=== PATIENT | male | born 1940 | race Caucasian/White ===

== ENCOUNTER 2017-12-20 16:04 | Emergency (ER) | payer MEDICARE, BC ==
[2017-12-20 16:54] LABS: #Basophils 0.1 thou/uL (0.0-0.2); #Eosinphils 0.1 thou/uL (0.0-0.7); #Lymphocytes 1.5 thou/uL (1.20-3.40); #Monocytes 1.2 thou/uL (0.11-0.59); #Neutrophils 6.7 thou/uL (1.40-6.50); %Basophils 0.5 % (0.0-1.0); %Eosinophils 0.9 % (0.0-10.0); %Lymphocytes 15.8 % (21.0-51.0); %Monocytes 12.8 % (0.0-10.0); %Neutrophils 69.9 % (42.0-75.0); Hemoglobin 15.7 g/dL (14.0-18.0); Mean Corpuscular HGB CONC 35.6 g/dL (32.0-36.0); Mean Corpuscular Hemoglobin 32.2 pg (27.0-31.0); Mean Corpuscular Volume 90.4 fl (80.0-94.0); Mean Platelet Volume 7.5 fL (7.4-10.4); Platelet Count 274 thou/uL (130-400); RBC Distribution Width 10.7 % (11.5-14.5); Red Blood Cell (RBC) Count 4.89 mill/uL (4.70-6.10); White Blood Cell (WBC) Count 9.5 thou/uL (4.8-10.8)
[2017-12-20 17:10] LABS: ALT (SGPT) 12 U/L (8-55); AST (SGOT) 16 U/L (5-34); Albumin 4.2 g/dL (3.4-4.8); Alkaline Phosphatase 60 U/L (40-150); Anion Gap 14 mmol/L (10-20); BUN (Urea Nitrogen) 23 mg/dL (8.4-25.7); Bilirubin, Total 0.8 mg/dL (0.2-1.2); CK (CPK) 95 U/L (30-200); Calc. Creatinine Clearance 0 mL/min (70-130); Calcium 9.3 mg/dL (7.8-10.44); Carbon Dioxide 24 mmol/L (23-31); Chloride 102 mmol/L (98-107); Estimated GFR-MDRD 65; Globulin 2.7 g/dL (2.4-3.5); Glucose 120 mg/dL (83-110); Lipase 15 U/L (8-78); Potassium 3.8 mmol/L (3.5-5.1); Protein, Total 6.9 g/dL (5.8-8.1); Sodium 136 mmol/L (136-145)
[2017-12-20 17:14] LABS: CKMB 1.5 ng/mL (0-6.6); Troponin I Less than 0.010 ng/mL (< 0.028)
== END 2017-12-20 17:42 | disposition home or self-care (01) ==
LOC: SCSER 16:04
DX: E86.0 Dehydration (principal); R10.9 Unspecified abdominal pain; H26.9 Unspecified cataract; G20 Parkinson's disease; I25.10 Atherosclerotic heart disease of native coronary artery without angina pectoris; E78.5 Hyperlipidemia, unspecified; I10 Essential (primary) hypertension; F41.9 Anxiety disorder, unspecified; Z79.82 Long term (current) use of aspirin; Z79.899 Other long term (current) drug therapy
CPT/HCPCS: 80053; 82550; 82553; 83690; 84484; 85025; 93005

== ENCOUNTER 2018-03-25 15:42 | Inpatient (IN) | payer MEDICARE, BC ==
[2018-03-25 17:46] LABS: Anion Gap 13 mmol/L (10-20); BUN (Urea Nitrogen) 18 mg/dL (8.4-25.7); Calc. Creatinine Clearance 0 mL/min (70-130); Calcium 8.6 mg/dL (7.8-10.44); Carbon Dioxide 23 mmol/L (23-31); Chloride 92 mmol/L (98-107); Estimated GFR-MDRD Greater than 90; Glucose 103 mg/dL (83-110); Potassium 3.8 mmol/L (3.5-5.1); Sodium 124 mmol/L (136-145)
[2018-03-25 17:49] LABS: Bilirubin Negative (Negative); Blood, Urine Negative (Negative); Clarity Clear (Clear); Glucose, Urine (Dipstick) Negative (Negative); Leukocyte Negative (Negative); Nitrite Negative (Negative); Protein, Urine (Dipstick) Negative (Neg-Trace); Specific Gravity, Urine 1.015 (1.005-1.030); pH, Urine 6.5 (5.0-9.0)
[2018-03-25 18:06] LABS: #Eosinphils 0.1 thou/uL (0.0-0.7); #Lymphocytes 1.8 thou/uL (1.20-3.40); #Monocytes 1.4 thou/uL (0.11-0.59); #Neutrophils 9.9 thou/uL (1.40-6.50); %Basophils 0.4 % (0.0-1.0); %Eosinophils 0.6 % (0.0-10.0); %Lymphocytes 13.5 % (21.0-51.0); %Monocytes 10.5 % (0.0-10.0); %Neutrophils 75.1 % (42.0-75.0); Hemoglobin 13.9 g/dL (14.0-18.0); Mean Corpuscular HGB CONC 35.5 g/dL (32.0-36.0); Mean Corpuscular Hemoglobin 30.2 pg (27.0-31.0); Mean Corpuscular Volume 85.1 fL (78.0-98.0); Mean Platelet Volume 7.6 fL (7.4-10.4); Platelet Count 278 thou/uL (130-400); RBC Distribution Width 10.3 % (11.5-14.5); Red Blood Cell (RBC) Count 4.62 mill/uL (4.70-6.10); White Blood Cell (WBC) Count 13.1 thou/uL (4.8-10.8)
[2018-03-25 20:42] VITALS: BMI 28.7
[2018-03-25] MEDS ORDERED: Acetaminophen 325 MG TAB PO PRN (20:48)
[2018-03-25] MEDS ORDERED: Ondansetron HCl/PF 4 MG/2 ML Vial IVP PRN (20:48)
[2018-03-25] MEDS: Sodium Chloride 0.9% 1,000 ML IV SCH (21:20)
--- NOTE | 2018-03-26 00:33 | HP ---
PRIMARY CARE PHYSICIAN: Dr. Joe Harris. CODE STATUS: FULL CODE. TIME OF EVALUATION: 8:30 p.m. CHIEF COMPLAINT: Urinary retention. HISTORY OF PRESENT ILLNESS: A 78-year-old male patient with a past medical history of Parkinson dise ase; coronary artery disease, status post stent placement; hyperlipidemia; hypertension; came to the hospital after having urinary retention. The patient reported being unable to urinate, no clear trig gers, no alleviating factors. As note, he was seen in [facility] on Friday and was prescribed so me Flomax, but the patient has had no improvement. The patient denies any fever, chills. Symptoms a re reported as moderate. REVIEW OF SYSTEMS: Constitutional: No fever, chills, or generalized weakness. Respiratory: No cou gh, sputum production, or shortness of breath. Cardiovascular: No palpitations or shortness of nolberto th. Gastrointestinal: No nausea, no vomiting, diarrhea or abdominal pain. 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 Genitourinary: The patient reported urinary retention. Extremities: No leg swelling. All other systems were reviewed and negative except for the findings mentioned abov e. PAST MEDICAL HISTORY: Positive for findings mentioned in the HPI. PAST SURGICAL HISTORY: TURP, back surgery, heart stent, appendectomy, hernia repair. PSYCHIATRIC HISTORY: Anxiety. SOCIAL HISTORY: The patient drinks socially every week. No drug use. No smoking history. Lives at home with family. ALLERGIES: CIPRO and SULFA. FAMILY HISTORY: Mother and father of congestive heart failure. REPORTED MEDICATIONS: Atorvastatin, , carbidopa, aspirin, Toprol, Ranexa, . PHYSICAL EXAMINATION: VITAL SIGNS: Blood pressure 148/85 with heart rate 73, respiratory rate was 19, temperature 97.6, ox ygen saturation was 94% on room air. GENERAL APPEARANCE: The patient is alert, oriented, not in any acute distress. HEENT: Eyes: Normal conjunctivae. Moist oral mucosa. Anicteric. NECK: No JVD. RESPIRATORY: Bilateral air entry. No rales, no wheezing. Symmetric expansion. CARDIOVASCULAR: Normal rate. Regular rhythm. No murmurs, no gallop. No edema. ABDOMEN: Soft, normal bowel sounds. MUSCULOSKELETAL: Baseline range of motion and strength. No tenderness. SKIN: Warm and intact. No pallor, no rash, no redness. Peripheral pulses are present. Capillary r efill seems to be intact. NEUROLOGIC: Baseline sensory. No evidence of any new focal weakness. The patient has underlying Pa rkinson disease. PSYCHIATRIC: The patient is in good mood. No anxiety, oriented, optimal judgment. LABORATORY DATA: Labs were reviewed. White count 13.1, hemoglobin 13.9, MCV 85, platelet count 278. Chemistry: Sodium 124, potassium 3.8, chloride 92, carbon dioxide 23, anion gap 13, BUN 18, creati nine 0.8, GFR greater than 90, glucose 103. UA was negative. ASSESSMENT AND PLAN: The patient will be placed in the hospital with the following medical problems. 1. Hyponatremia. Sodium 124, unclear etiology. We will send electrolytes, we will follow results, we will adjust treatment depending on workup results. 2. Urinary retention, unclear etiology, could be related to side effects of anticholinergic, may nee d adjustments and medication treatment. 3. Hyperlipidemia. Reconcile home medications, low cholesterol diet is advised. 4. History of coronary artery disease, status post stent, reconcile home medications. Adjust treatm ent as needed. 5. Uncontrolled hypertension, systolic blood pressure 150s, reconcile home medications, adjust treat ment as needed. 6. Deep venous thrombosis prophylaxis.
[2018-03-26 05:11] LABS: Anion Gap 14 mmol/L (10-20); BUN (Urea Nitrogen) 13 mg/dL (8.4-25.7); Calc. Creatinine Clearance 90 mL/min (70-130); Calcium 8.6 mg/dL (7.8-10.44); Carbon Dioxide 25 mmol/L (23-31); Chloride 97 mmol/L (98-107); Estimated GFR-MDRD 85; Glucose 100 mg/dL (83-110); Potassium 3.5 mmol/L (3.5-5.1); Sodium 132 mmol/L (136-145)
[2018-03-26] MEDS: Sodium Chloride 0.9% 1,000 ML IV SCH (05:59)
[2018-03-26 06:09] LABS: #Eosinphils 0.1 thou/uL (0.0-0.7); #Lymphocytes 1.2 thou/uL (1.20-3.40); #Monocytes 1.3 thou/uL (0.11-0.59); #Neutrophils 7.2 thou/uL (1.40-6.50); %Basophils 0.4 % (0.0-1.0); %Eosinophils 0.6 % (0.0-10.0); %Monocytes 13.6 % (0.0-10.0); %Neutrophils 73.4 % (42.0-75.0); Hemoglobin 13.6 g/dL (14.0-18.0); Mean Corpuscular Hemoglobin 33.1 pg (27.0-31.0); Mean Corpuscular Volume 91.9 fL (78.0-98.0); Mean Platelet Volume 7.8 fL (7.4-10.4); Platelet Count 265 thou/uL (130-400); RBC Distribution Width 11.6 % (11.5-14.5); White Blood Cell (WBC) Count 9.8 thou/uL (4.8-10.8)
[2018-03-26] MEDS ORDERED: Polyethylene Glycol 3350 17 GM Packet PO PRN (07:10)
[2018-03-26] MEDS: Ubidecarenone 50 MG CAP PO SCH (08:17)
[2018-03-26] MEDS: Metoprolol Tartrate 25 MG TAB PO SCH (08:18)
[2018-03-26] MEDS: Tamsulosin HCl 0.4 MG CAP PO SCH ×2 (08:18→20:36)
[2018-03-26] MEDS: Finasteride 5 MG TAB PO SCH (08:18)
[2018-03-26] MEDS: Enoxaparin Sodium 40 MG/0.4 ML SYRINGE SC SCH (08:18)
[2018-03-26] MEDS ORDERED: Non-Formulary Item 1 EACH (Ubidecarenone [Coq-10] 100 MG) PO SCH (09:00)
[2018-03-26] MEDS ORDERED: CARBIDOPA PO SCH ×2 (09:00)
[2018-03-26] MEDS ORDERED: LEVODOPA PO SCH ×2 (09:00)
[2018-03-26] MEDS ORDERED: RASAGILINE MESYLATE 1 MG PO SCH (09:00)
[2018-03-26] MEDS: Carbidopa/Levodopa 25-100 mg Tablet PO SCH ×4 (09:06→20:36)
--- NOTE | 2018-03-26 11:01 | PDOC.PN ---
- Subjective Encounter Start Date: 03/26/18 Encounter Start Time: 09:00 Subjective: no abd pain or nausea -: wants to go home - Objective Resuscitation Status: Resuscitation Status FULL:Full Resuscitation MAR Reviewed: Yes Vital Signs & Weight: Vital Signs (12 hours) Temp Pulse Resp BP Pulse Ox 03/26/18 08:05 98.2 F 71 16 174/86 H 92 L 03/26/18 08:00 98.2 F 71 16 03/26/18 04:00 98.6 F 67 16 149/80 H 92 L 03/25/18 23:43 98.7 F 72 12 138/80 92 L Weight Weight 200 lb I&O: 03/25/18 03/26/18 03/27/18 06:59 06:59 06:59 Intake Total 240 Output Total 3050 Balance -3050 240 Result Diagrams: 03/26/18 03:48 03/26/18 03:48 Phys Exam - Physical Examination HEENT: PERRLA, moist MMs Neck: no JVD, supple Respiratory: no wheezing, no rales Cardiovascular: RRR, no significant murmur Gastrointestinal: soft, non-tender, positive bowel sounds dominguez+ Musculoskeletal: no edema, pulses present Neurological: non-focal, moves all 4 limbs Psychiatric: normal affect, A&O x 3 Dx/Plan (1) Urinary retention due to benign prostatic hyperplasia Code(s): N40.1 - BENIGN PROSTATIC HYPERPLASIA WITH LOWER URINARY TRACT SYMP; R33.8 - OTHER RETENTION OF URINE Status: Acute Comment: prior h/o turp in 1995 with (2) Parkinson disease Code(s): G20 - PARKINSON'S DISEASE Status: Chronic (3) CAD (coronary artery disease) Code(s): I25.10 - ATHSCL HEART DISEASE OF [place] CORONARY ARTERY W/O ANG PCTRS Status: Chronic Qualifiers: Coronary Disease-Associated Artery/Lesion type: [place] artery [place] vs. transplanted heart: [place] heart Associated angina: without angina Qualified Code(s): I25.10 - Atherosclerotic heart disease of [place] coronary artery without angina pectoris (4) Dyslipidemia Code(s): E78.5 - HYPERLIPIDEMIA, UNSPECIFIED Status: Chronic (5) Hyponatremia Code(s): E87.1 - HYPO-OSMOLALITY AND HYPONATREMIA Status: Resolved (6) HTN (hypertension) Code(s): I10 - ESSENTIAL (PRIMARY) HYPERTENSION Status: Chronic Qualifiers: Hypertension type: essential hypertension Qualified Code(s): I10 - Essential (primary) hypertension - Plan add flomax bid, proscar -: has indwelling dominguez now -: may need to prepone his apr 27 appt to of march if he goes home -: -with dominguez catheter. May dc home if above is set up, no sign of uti -: continue home meds including parkinson's meds * . Review of Systems - Medications/Allergies Allergies/Adverse Reactions: Allergies Allergy/AdvReac Type Severity Reaction Status Date / Time No Known Allergies Allergy Unverified 03/25/18 20:52 Medications: Current Medications Acetaminophen (Tylenol) 650 mg PO Q4H PRN PRN Reason: Headache/Fever or Pain Atorvastatin Calcium (Lipitor) 20 mg PO HS [facility] Carbidopa/Levodopa (Sinemet 25-100) 1 tab PO QID [facility] Last Admin: 03/26/18 09:06 Dose: 1 tab Coenzyme Q10 (Coenzyme Q10) 100 mg PO DAILY [facility] Last Admin: 03/26/18 08:17 Dose: 100 mg Enoxaparin Sodium (Lovenox) 40 mg SC 0900 [facility] Last Admin: 03/26/18 08:18 Dose: 40 mg Finasteride (Proscar) 5 mg PO DAILY [facility] Last Admin: 03/26/18 08:18 Dose: 5 mg Metoprolol Tartrate (Lopressor) 25 mg PO DAILY [facility] Last Admin: 03/26/18 08:18 Dose: 25 mg Ondansetron HCl (Zofran) 4 mg IVP Q6H PRN PRN Reason: Nausea/Vomiting Polyethylene Glycol (Miralax) 17 gm PO PRN PRN PRN Reason: Constipation Ranolazine (Ranexa) 500 mg PO BID [facility] Last Admin: 03/26/18 08:18 Dose: 500 mg Rasagiline (Azilect) 1 mg PO DAILY [facility] Last Admin: 03/26/18 08:18 Dose: 1 mg Sodium Chloride (Flush - Normal Saline) 10 ml IVF Q12HR [facility] Last Admin: 03/26/18 08:18 Dose: 10 ml Sodium Chloride (Flush - Normal Saline) 10 ml IVF PRN PRN PRN Reason: Saline Flush Tamsulosin HCl (Flomax) 0.4 mg PO BID [facility] Last Admin: 03/26/18 08:18 Dose: 0.4 mg Venlafaxine HCl (Effexor Xr) 75 mg PO HS [facility]
[2018-03-26] MEDS ORDERED: Venlafaxine HCl XR 75 MG CAP PO SCH (21:00)
[2018-03-26] MEDS ORDERED: Atorvastatin Calcium 20 MG TAB PO SCH (21:00)
[2018-03-26] MEDS ORDERED: Non-Formulary Item 1 EACH (Desvenlafaxine Succinate [Pristiq] 50 MG) PO SCH (21:00)
[2018-03-27] MEDS: Tamsulosin HCl 0.4 MG CAP PO SCH (08:19)
[2018-03-27] MEDS: Metoprolol Tartrate 25 MG TAB PO SCH (08:19)
[2018-03-27] MEDS: Ubidecarenone 50 MG CAP PO SCH (08:19)
[2018-03-27] MEDS: Finasteride 5 MG TAB PO SCH (08:19)
[2018-03-27] MEDS: Carbidopa/Levodopa 25-100 mg Tablet PO SCH (08:20)
[2018-03-27] MEDS: Enoxaparin Sodium 40 MG/0.4 ML SYRINGE SC SCH (08:20)
--- NOTE | 2018-03-27 10:50 | PDOC.PN ---
- Subjective Encounter Start Date: 03/27/18 Encounter Start Time: 08:00 Subjective: no abd pain or nausea or fever - Objective Resuscitation Status: Resuscitation Status FULL:Full Resuscitation MAR Reviewed: Yes Vital Signs & Weight: Vital Signs (12 hours) Temp Pulse Resp BP Pulse Ox 03/27/18 08:25 98.2 F 88 18 94 L 03/27/18 07:39 98.2 F 88 18 155/76 H 94 L Weight Weight 200 lb I&O: 03/26/18 03/27/18 03/28/18 06:59 06:59 06:59 Intake Total 2450 Output Total 3050 4300 Balance -3050 -1850 Result Diagrams: 03/26/18 03:48 03/26/18 03:48 Phys Exam - Physical Examination HEENT: PERRLA, moist MMs Neck: no JVD, supple Respiratory: no wheezing, no rales Cardiovascular: RRR, no significant murmur Gastrointestinal: soft, non-tender, positive bowel sounds dominguez+ Musculoskeletal: no edema, pulses present Neurological: non-focal, moves all 4 limbs Psychiatric: normal affect, A&O x 3 Dx/Plan (1) Urinary retention due to benign prostatic hyperplasia Code(s): N40.1 - BENIGN PROSTATIC HYPERPLASIA WITH LOWER URINARY TRACT SYMP; R33.8 - OTHER RETENTION OF URINE Status: Acute Comment: prior h/o turp in 1995 with (2) Parkinson disease Code(s): G20 - PARKINSON'S DISEASE Status: Chronic (3) CAD (coronary artery disease) Code(s): I25.10 - ATHSCL HEART DISEASE OF [place] CORONARY ARTERY W/O ANG PCTRS Status: Chronic Qualifiers: Coronary Disease-Associated Artery/Lesion type: [place] artery [place] vs. transplanted heart: [place] heart Associated angina: without angina Qualified Code(s): I25.10 - Atherosclerotic heart disease of [place] coronary artery without angina pectoris (4) Dyslipidemia Code(s): E78.5 - HYPERLIPIDEMIA, UNSPECIFIED Status: Chronic (5) Hyponatremia Code(s): E87.1 - HYPO-OSMOLALITY AND HYPONATREMIA Status: Resolved (6) HTN (hypertension) Code(s): I10 - ESSENTIAL (PRIMARY) HYPERTENSION Status: Chronic Qualifiers: Hypertension type: essential hypertension Qualified Code(s): I10 - Essential (primary) hypertension - Plan hemostable -: dc pt home -: d/w , to see him on 04/01/2018 at 1 pm -: to provide rolling walker and thigh bag for dominguez -: dominguez care education per staff * .
[2018-03-27 11:13] VITALS: BP 135/79; TEMP 97.6
--- NOTE | 2018-03-27 20:15 | DIS ---
DATE OF ADMISSION: 03/25/2018 DATE OF DISCHARGE: 03/27/2018 DISCHARGE DISPOSITION: To home. PRIMARY DISCHARGE DIAGNOSIS: Urinary retention, likely due to underlying benign prostatic hypertroph y. SECONDARY DISCHARGE DIAGNOSES: Parkinson disease, coronary artery disease, dyslipidemia, hyponatremi a which got resolved, hypertension. PROCEDURES DONE DURING HOSPITALIZATION: H and H 13 and 37, platelet count 265. White count of 9.8. Initial sodium 124, discharge number of 132. BUN 13, creatinine 0.8. DISCHARGE MEDICATIONS: Aspirin 325 mg p.o. daily, Lipitor 20 mg p.o. at bedtime, carbidopa/levodopa 25/100 mg 4 times daily, Pristiq 50 mg p.o. at bedtime, Lopressor 25 mg daily, MiraLax 17 grams daily , rasagiline 1 mg p.o. daily, CoQ10 at 100 mg p.o. daily, Proscar 5 mg p.o. daily, Flomax 0.4 mg twic e daily, Ranexa 500 mg p.o. twice daily. ALLERGIES: No known drug allergies. DISCHARGE PLAN: The patient to follow up with Dr. Jaquelin Olivo on 04/01/2018 at 1:00 p.m. He also needs follow up with primary care physician in 1 week. BRIEF COURSE DURING HOSPITALIZATION: Patient initially came to ER with complaints of unable to pass urine. He was essentially admitted for urinary retention. He has had this issue from Friday when [facility] had [facility] and was given Flomax once daily. This did not seem to improve his re tention. He has had a Locke catheter placed and was placed on Flomax twice daily along with Proscar. The patient has had prior history of TURP done in 1995 for benign prostatic hypertrophy. He is cur rently stable with his Locke catheter. He had an mild hyponatremia which got resolved with fluid res uscitation. I have discussed his findings with Dr. Hammer and he will be shortly seeing him in a we ek. He was scheduled to see Dr. Hammer on 04/27/2018. In view of his Locke catheter and current re tention, he will be seen earlier on 04/01/2018. Hopefully, by then the Proscar and Flomax will take full effect and patient likely will have bladder training with removal of his catheter. He is on mul tiple medications which could potentially cause this in addition to benign prostatic hypertrophy. Edmund jayy is a bit unsteady with his Parkinson disease and a rolling walker has been prescribed prior to discharge. Please see a [id number] documentation on [facility] for the day of discharge.
== END 2018-03-27 12:42 | disposition home or self-care (01) | DRG 726 ==
LOC: SCSER 15:42 → T4-A 19:35
PROVIDERS: ADMIT Internal Medicine; ATTEND Internal Medicine
DX: N40.0 Benign prostatic hyperplasia without lower urinary tract symptoms (principal); E87.1 Hypo-osmolality and hyponatremia; G20 Parkinson's disease; I25.10 Atherosclerotic heart disease of native coronary artery without angina pectoris; Z95.5 Presence of coronary angioplasty implant and graft; E78.5 Hyperlipidemia, unspecified; I10 Essential (primary) hypertension; F41.9 Anxiety disorder, unspecified; Z88.1 Allergy status to other antibiotic agents; Z88.2 Allergy status to sulfonamides; Z79.82 Long term (current) use of aspirin
CPT/HCPCS: 36415; 51702; 80048; 81003; 85025; 99214; A4216; G0463; J1650

== ENCOUNTER 2018-04-05 16:18 | Inpatient (IN) | payer MEDICARE, BC ==
[2018-04-05 17:05] LABS: #Basophils 0.1 thou/uL (0.0-0.2); #Lymphocytes 0.3 thou/uL (1.20-3.40); #Monocytes 0.9 thou/uL (0.11-0.59); #Neutrophils 17.3 thou/uL (1.40-6.50); %Basophils 0.7 % (0.0-1.0); %Eosinophils 0.1 % (0.0-10.0); %Lymphocytes 1.5 % (21.0-51.0); %Monocytes 4.7 % (0.0-10.0); Hemoglobin 13.5 g/dL (14.0-18.0); Mean Corpuscular HGB CONC 35.6 g/dL (32.0-36.0); Mean Corpuscular Hemoglobin 31.9 pg (27.0-31.0); Mean Corpuscular Volume 89.7 fL (78.0-98.0); Mean Platelet Volume 7.1 fL (7.4-10.4); Platelet Count 259 thou/uL (130-400); RBC Distribution Width 10.4 % (11.5-14.5); Red Blood Cell (RBC) Count 4.24 mill/uL (4.70-6.10); White Blood Cell (WBC) Count 18.6 thou/uL (4.8-10.8)
[2018-04-05] MEDS ORDERED: Piperacillin/Tazobactam 3.375 GM VIAL ONE (17:05)
[2018-04-05] MEDS ORDERED: Sodium Chloride 0.9% 100 ML ONE (17:05)
[2018-04-05] MEDS ORDERED: Aspirin 325 MG TAB ONE (17:05)
--- NOTE | 2018-04-05 17:08 | RAD ---
PORTABLE SEMIUPRIGHT CHEST ONE VIEW: History: 78-year-old male with history of fever, dizziness, diaphoresis. Comparison: 08-30-15 FINDINGS: Heart size is normal. Atherosclerosis of the aorta. No confluent pneumonia, overt edema, or pleural e ffusion. IMPRESSION: No acute intrathoracic disease. No evidence for pneumonia. Atherosclerosis of the aorta. POS: [facility]
[2018-04-05 17:22] LABS: CKMB 2.1 ng/mL (0-6.6); Troponin I 0.056 ng/mL (< 0.028)
[2018-04-05 17:23] LABS: ALT (SGPT) 36 U/L (8-55); AST (SGOT) 33 U/L (5-34); Albumin 3.6 g/dL (3.4-4.8); Alkaline Phosphatase 87 U/L (40-150); Anion Gap 14 mmol/L (10-20); BUN (Urea Nitrogen) 24 mg/dL (8.4-25.7); Bilirubin, Total 0.6 mg/dL (0.2-1.2); Calc. Creatinine Clearance 0 mL/min (70-130); Calcium 8.8 mg/dL (7.8-10.44); Carbon Dioxide 23 mmol/L (23-31); Chloride 98 mmol/L (98-107); Estimated GFR-MDRD 45; Globulin 2.6 g/dL (2.4-3.5); Glucose 110 mg/dL (83-110); Lipase 17 U/L (8-78); Potassium 3.3 mmol/L (3.5-5.1); Protein, Total 6.2 g/dL (5.8-8.1); Sodium 132 mmol/L (136-145)
[2018-04-05 17:34] LABS: CK (CPK) 256 U/L (30-200)
[2018-04-05 18:08] LABS: Bilirubin Small (Negative); Blood, Urine Large (Negative); Glucose, Urine (Dipstick) Negative (Negative); Leukocyte Moderate (Negative); Nitrite Positive (Negative); Protein, Urine (Dipstick) 100 mg/dL (Neg-Trace); Specific Gravity, Urine 1.025 (1.005-1.030); pH, Urine 5.5 (5.0-9.0)
[2018-04-05 18:15] LABS: Clarity Cloudy (Clear)
[2018-04-05 18:16] LABS: Bacteria/HPF 4+ HPF (None Seen); Squamous Epithelial 0-3 HPF (0-3); WBC/HPF 21-50 HPF (0-3)
[2018-04-05] MEDS ORDERED: Ondansetron ODT 4 MG TAB PO PRN (20:27)
[2018-04-05] MEDS ORDERED: Acetaminophen 325 MG TAB PO PRN (20:27)
[2018-04-05] MEDS ORDERED: Bisacodyl 5 MG TAB PO PRN (20:27)
[2018-04-05] MEDS ORDERED: Guaifenesin DM 100-10/5 ML UDCUP PO PRN (20:27)
[2018-04-05] MEDS ORDERED: Fleet Enema 133 ML BOT PR PRN (20:27)
[2018-04-05] MEDS ORDERED: Ondansetron HCl/PF 4 MG/2 ML Vial IVP PRN (20:27)
[2018-04-05] MEDS ORDERED: cefTRIAXone\\ROCEPHIN 1 GM in Sodium Chloride 0.9% 100 ML IVPB SCH (21:00)
[2018-04-05 22:29] VITALS: BMI 25.4
[2018-04-05] MEDS: Famotidine/PF 20 mg/2ml Vial SLOW IVP SCH (22:51)
[2018-04-05] MEDS: Sodium Chloride 0.9% 1,000 ML IV SCH (22:53)
[2018-04-06 05:30] LABS: Albumin 3.3 g/dL (3.4-4.8); Anion Gap 14 mmol/L (10-20); BUN (Urea Nitrogen) 19 mg/dL (8.4-25.7); Calc. Creatinine Clearance 73 mL/min (70-130); Calcium 8.3 mg/dL (7.8-10.44); Carbon Dioxide 22 mmol/L (23-31); Chloride 99 mmol/L (98-107); Estimated GFR-MDRD 72; Glucose 104 mg/dL (83-110); Potassium 3.5 mmol/L (3.5-5.1); Sodium 131 mmol/L (136-145)
[2018-04-06 05:35] LABS: Band 22 % (5-11); Hemoglobin 12.1 g/dL (14.0-18.0); Lymphocytes 6 % (21-51); MDiff Complete? YES; Mean Corpuscular HGB CONC 34.2 g/dL (32.0-36.0); Mean Corpuscular Hemoglobin 32.2 pg (27.0-31.0); Mean Corpuscular Volume 94.3 fL (78.0-98.0); Mean Platelet Volume 7.4 fL (7.4-10.4); Monocytes 8 % (0-10); Neutrophil 64 % (42-75); PLT Morphology Comment Appears Adequate; Platelet Count 235 thou/uL (130-400); RBC Distribution Width 11.7 % (11.5-14.5); Red Blood Cell (RBC) Count 3.75 mill/uL (4.70-6.10); White Blood Cell (WBC) Count 27.3 thou/uL (4.8-10.8)
[2018-04-06] MEDS: Enoxaparin Sodium 30 MG/0.3 ML SYRINGE SC SCH (09:05)
[2018-04-06] MEDS ORDERED: cefTRIAXone Sodium 2 MG in Syringe 0 ML IVPB SCH (10:30)
--- NOTE | 2018-04-06 11:29 | HP ---
CHIEF COMPLAINT: Weak and dizzy. HISTORY OF PRESENT ILLNESS: This is a 78-year-old male with past medical history of Parkinson's, cor onary artery disease status post stent placement, hyperlipidemia, hypertension who presented with chi ef complaint of weakness and dizziness. The patient described dizziness and diaphoresis started arou nd 1400 on the day of admission. The patient was at his son's home when this started. The patient s tated that he felt "sick". The patient has associated symptoms of nausea and dizziness with some mal aise. The patient denies chest pain, shortness of breath, cough, vomiting, syncope, recent travel. Of note, the patient was recently seen in the ED for a urinary tract infection and was being treated. REVIEW OF SYSTEMS: Positive for weakness, dizziness. Otherwise, documented in the [facility] All other sys tems reviewed and are negative. FAMILY HISTORY: Reviewed and noncontributory to this visit. PAST SURGICAL HISTORY: The patient has TURP in the past, back surgery, CAD status post stents, appen dectomy, hernia repair. PSYCHIATRIC HISTORY: Includes anxiety. SOCIAL HISTORY: Patient drinks occasionally. Denies any illicits drugs or smoking history. PAST MEDICAL HISTORY: Refer to [facility]. ALLERGIES: Patient is allergic to CIPRO and SULFA. CURRENT MEDICATIONS: He takes atorvastatin, Azilect, carbidopa/levodopa, aspirin, Toprol, Ranexa, Pr istiq. PHYSICAL EXAMINATION: VITAL SIGNS: Blood pressure is 134/77, pulse is 110, respiratory rate of 17, temperature of 99.8, O2 sat on room air is 92. GENERAL APPEARANCE: The patient is lying in bed. The patient is trembling, but able to speak in ful l sentences, does not appear to be in any acute distress. HEENT: Head normal. ENT: Mucous membranes normal. Pupils are equally round and reactive to light. Extraocular muscles are intact. NECK: Supple, no JVD. Trachea is midline. LUNGS: Clear to auscultation bilateral. No wheeze, no rales, no rhonchi. HEART: Regular S1, S2. Regular rate and rhythm. ABDOMEN: Soft, nontender, nondistended, positive bowel sounds. No ecchymosis noted. EXTREMITIES: Upper extremities; the patient did have tremors of the upper extremities as noted. The patient is able to move all extremities and has good pulses. NEUROLOGIC: Cranial nerves II-XII are grossly intact. SKIN: Warm, dry and intact. PSYCHIATRIC: Normal. Alert and oriented x3. Chest x-ray showed no acute intrathoracic disease. No evidence of pneumonia, atherosclerosis of the aorta. ED COURSE: The patient received some Zosyn one time in the ED. LABORATORY DATA: Admission WBC is 18.6, hemoglobin 13.5, hematocrit 38.1, platelets 259, lymphocyte percent is 1.5, monocytes is 4.7. Electrolytes; sodium is 132, potassium is 3.3, chloride is 98, car bon dioxide 23, BUN is 24, creatinine is 1.5, creatine kinase 256. Troponins was 0.056. Urinalysis; large leukoesterase and positive for nitrites. ASSESSMENT AND PLAN: 1. This is a 78-year-old male with multiple comorbidities being admitted for urinary tract infection . We started the patient on Rocephin and will continue the patient on Rocephin. We will continue padilla pportive care. 2. History of Parkinson's, at this time stable. We will continue the patient on home medications. 3. Electrolyte abnormalities. We will monitor the patient's electrolytes and we will continue to re plete them. 4. Acute on chronic kidney disease stage 3. We restarted gentle hydration. We will follow up on e patient's creatinine in the morning. 5. Deep venous thrombosis and gastrointestinal prophylaxis.
[2018-04-06] MEDS: cefTRIAXone\\ROCEPHIN 2 GM in Sodium Chloride 0.9% 100 ML IVPB SCH (12:01)
[2018-04-06] MEDS: Sodium Chloride 0.9% 1,000 ML IV SCH (12:02)
[2018-04-06] MEDS ORDERED: Polyethylene Glycol 3350 17 GM Packet PO PRN (13:44)
[2018-04-06] MEDS ORDERED: Ubidecarenone 50 MG CAP PO SCH (15:00)
--- NOTE | 2018-04-06 16:17 | PDOC.PN ---
- Subjective Encounter Start Date: 04/06/18 Encounter Start Time: 11:30 Subjective: pt up in bed no complains - Objective Resuscitation Status: Resuscitation Status FULL:Full Resuscitation Vital Signs & Weight: Vital Signs (12 hours) Temp Pulse Resp BP Pulse Ox 04/06/18 11:38 98.2 F 81 16 150/75 H 91 L 04/06/18 08:00 97.9 F 75 18 92 L 04/06/18 07:25 97.9 F 75 18 134/72 92 L 04/06/18 04:19 98.0 F 68 18 118/67 92 L Weight Weight 187 lb 6.287 oz I&O: 04/05/18 04/06/18 04/07/18 06:59 06:59 06:59 Intake Total 758 480 Output Total 1200 Balance -442 480 Result Diagrams: 04/06/18 04:34 04/06/18 04:34 Phys Exam - Physical Examination Neck: no nodes, no JVD, supple, full ROM Respiratory: no wheezing, no rales, no rhonchi, wheezing present, clear to auscultation bilateral Cardiovascular: RRR, no significant murmur, no rub, gallop, irregular Dx/Plan (1) UTI (urinary tract infection) Status: Acute (2) Urinary retention due to benign prostatic hyperplasia Code(s): N40.1 - [place]EN[place] PROSTATIC HYPERPLASIA WITH LOWER URINARY TRACT SYMP; R33.8 - OTHER RETENTION OF URINE Status: Acute Comment: prior h/o turp in 1995 with (3) HTN (hypertension) Code(s): I10 - ESSENTIAL (PRIMARY) HYPERTENSION Status: Chronic Qualifiers: (4) Parkinson disease Code(s): G20 - PARKINSON'S DISEASE Status: Chronic - Plan will continue abx for now -: post void is 100ml -: pt is having blood tinged urine, if continue will get urology -: significant leukocytosis will recheck in am * . Review of Systems - Review of Systems Respiratory: negative: Cough, Dry, Shortness of Breath, Hemoptysis, SOB with Excertion, Pleuritic Pain, Sputum, Wheezing Cardiovascular: negative: chest pain, palpitations, orthopnea, paroxysmal nocturnal dyspnea, edema, light headedness, other Gastrointestinal: negative: Nausea, Vomiting, Abdominal Pain, Diarrhea, Constipation, Melena, Hematochezia, Other Genitourinary: negative: Dysuria, Frequency, Incontinence, Hematuria, Retention , Other - Medications/Allergies Allergies/Adverse Reactions: Allergies Allergy/AdvReac Type Severity Reaction Status Date / Time No Known Allergies Allergy Unverified 03/25/18 20:52 Medications: Current Medications Acetaminophen (Tylenol) 650 mg PO Q4H PRN PRN Reason: Headache/Fever or Pain Atorvastatin Calcium (Lipitor) 20 mg PO HS [facility] Bisacodyl (Dulcolax) 10 mg PO DAILYPRN PRN PRN Reason: Constipation Coenzyme Q10 (Coenzyme Q10) 100 mg PO DAILY [facility] Enoxaparin Sodium (Lovenox) 30 mg SC 0900 [facility] Last Admin: 04/06/18 09:05 Dose: 30 mg Famotidine (Pepcid) 20 mg SLOW IVP QPM [facility] Last Admin: 04/05/18 22:51 Dose: 20 mg Finasteride (Proscar) 5 mg PO HS [facility] Guaifenesin/Dextromethorphan (Robitussin Dm) 15 ml PO Q4H PRN PRN Reason: Cough Sodium Chloride (Normal Saline 0.9%) 1,000 mls @ 70 mls/hr IV .[id number] [facility] Last Admin: 04/06/18 12:02 Dose: 1,000 mls Ceftriaxone Sodium 2 gm/ (Sodium Chloride) 100 mls @ 200 mls/hr IVPB Q24HR [facility] Last Admin: 04/06/18 12:01 Dose: 100 mls Lactulose (Lactulose) 20 gm PO DAILYPRN PRN PRN Reason: Constipation Metoprolol Tartrate (Lopressor) 25 mg PO DAILY [facility] Ondansetron HCl (Zofran Odt) 4 mg PO Q6H PRN PRN Reason: Nausea/Vomiting Ondansetron HCl (Zofran) 4 mg IVP Q6H PRN PRN Reason: Nausea/Vomiting Carbidopa/Levodopa [ Carbidopa/Levodopa Odt] 1 Tablet 1 each PO QID [facility] Desvenlafaxine Succinate [Pristiq] 50 Mg 1 each PO DAILY [facility] Rasagiline Mesylate (1 Mg) 1 each PO DAILY [facility] Polyethylene Glycol (Miralax) 17 gm PO PRN PRN PRN Reason: Constipation Ranolazine (Ranexa) 500 mg PO BID [facility] Sodium Biphosphate/Sodium Phosphate (Fleet Enema) 133 ml ME ONE PRN PRN Reason: Constipation Stop: 05/05/18 20:28 Sodium Chloride (Flush - Normal Saline) 10 ml IVF Q12HR [facility] Last Admin: 04/06/18 09:05 Dose: Not Given Sodium Chloride (Flush - Normal Saline) 10 ml IVF PRN PRN PRN Reason: Saline Flush
[2018-04-06] MEDS ORDERED: Vancomycin HCl 1 GM in Premix Bag 1 BAG IVPB SCH (20:30)
[2018-04-06] MEDS: Famotidine/PF 20 mg/2ml Vial SLOW IVP SCH (21:36)
[2018-04-06] MEDS: Atorvastatin Calcium 20 MG TAB PO SCH (21:36)
[2018-04-06] MEDS: Finasteride 5 MG TAB PO SCH (22:05)
[2018-04-07 04:30] LABS: #Eosinphils 0.1 thou/uL (0.0-0.7); #Lymphocytes 1.3 thou/uL (1.20-3.40); #Neutrophils 14.6 thou/uL (1.40-6.50); %Basophils 0.3 % (0.0-1.0); %Eosinophils 0.3 % (0.0-10.0); %Lymphocytes 7.4 % (21.0-51.0); %Monocytes 11.1 % (0.0-10.0); Mean Corpuscular HGB CONC 34.5 g/dL (32.0-36.0); Mean Corpuscular Hemoglobin 32.8 pg (27.0-31.0); Mean Platelet Volume 8.1 fL (7.4-10.4); Platelet Count 272 thou/uL (130-400); RBC Distribution Width 11.8 % (11.5-14.5); Red Blood Cell (RBC) Count 3.96 mill/uL (4.70-6.10)
[2018-04-07 04:57] LABS: Anion Gap 13 mmol/L (10-20); BUN (Urea Nitrogen) 14 mg/dL (8.4-25.7); Calc. Creatinine Clearance 86 mL/min (70-130); Calcium 8.4 mg/dL (7.8-10.44); Carbon Dioxide 20 mmol/L (23-31); Chloride 101 mmol/L (98-107); Estimated GFR-MDRD 87; Glucose 105 mg/dL (83-110); Potassium 4.3 mmol/L (3.5-5.1); Sodium 130 mmol/L (136-145)
[2018-04-07] MEDS: Ubidecarenone 50 MG CAP PO SCH (08:56)
[2018-04-07] MEDS: Enoxaparin Sodium 30 MG/0.3 ML SYRINGE SC SCH (08:56)
[2018-04-07] MEDS: Metoprolol Tartrate 25 MG TAB PO SCH (08:56)
[2018-04-07] MEDS: Venlafaxine HCl XR 75 MG CAP PO SCH (08:56)
[2018-04-07] MEDS: Carbidopa/Levodopa 25-100 mg Tablet PO SCH ×4 (08:56→21:19)
[2018-04-07] MEDS ORDERED: Desvenlafaxine Succinate [Pristiq] 50 MG PO SCH (09:00)
[2018-04-07] MEDS: cefTRIAXone\\ROCEPHIN 2 GM in Sodium Chloride 0.9% 100 ML IVPB SCH (10:59)
--- NOTE | 2018-04-07 13:39 | PDOC.PN ---
- Subjective Encounter Start Date: 04/07/18 Encounter Start Time: 11:30 Subjective: pt up in bed has some hematuria - Objective Resuscitation Status: Resuscitation Status FULL:Full Resuscitation Vital Signs & Weight: Vital Signs (12 hours) Temp Pulse Resp BP Pulse Ox 04/07/18 08:00 98.2 F 94 18 138/77 95 04/07/18 05:03 98.0 F 83 20 141/82 H 92 L Weight Weight 187 lb 6.287 oz I&O: 04/06/18 04/07/18 04/08/18 06:59 06:59 06:59 Intake Total 758 2620 240 Output Total 1200 1475 Balance -442 1145 240 Result Diagrams: 04/07/18 04:15 04/07/18 04:15 Phys Exam - Physical Examination HEENT: PERRLA, moist MMs, sclera anicteric, TM's clear, oral pharynx no lesions , 2+ tonsils Neck: no nodes, no JVD, supple, full ROM Respiratory: no wheezing, no rales, no rhonchi, wheezing present, clear to auscultation bilateral Cardiovascular: RRR, no significant murmur, no rub, gallop, irregular Dx/Plan (1) UTI (urinary tract infection) Status: Acute (2) Urinary retention due to benign prostatic hyperplasia Code(s): N40.1 - BENIGN PROSTATIC HYPERPLASIA WITH LOWER URINARY TRACT SYMP; R33.8 - OTHER RETENTION OF URINE Status: Acute Comment: prior h/o turp in 1995 with (3) HTN (hypertension) Code(s): I10 - ESSENTIAL (PRIMARY) HYPERTENSION Status: Chronic Qualifiers: (4) Parkinson disease Code(s): G20 - PARKINSON'S DISEASE Status: Chronic - Plan will switch to po abx -: blood cx indicates gram neg staph -: hematuria mild, pt has no large clots if he continues to have -: hematuria will consult urology. hh is stable * . Review of Systems - Review of Systems Cardiovascular: negative: chest pain, palpitations, orthopnea, paroxysmal nocturnal dyspnea, edema, light headedness, other Gastrointestinal: negative: Nausea, Vomiting, Abdominal Pain, Diarrhea, Constipation, Melena, Hematochezia, Other Genitourinary: negative: Dysuria, Frequency, Incontinence, Hematuria, Retention , Other - Medications/Allergies Allergies/Adverse Reactions: Allergies Allergy/AdvReac Type Severity Reaction Status Date / Time No Known Allergies Allergy Unverified 03/25/18 20:52 Medications: Current Medications Acetaminophen (Tylenol) 650 mg PO Q4H PRN PRN Reason: Headache/Fever or Pain Atorvastatin Calcium (Lipitor) 20 mg PO HS [facility] Last Admin: 04/06/18 21:36 Dose: 20 mg Bisacodyl (Dulcolax) 10 mg PO DAILYPRN PRN PRN Reason: Constipation Carbidopa/Levodopa (Sinemet 25-100) 1 tab PO QID [facility] Last Admin: 04/07/18 13:17 Dose: 1 tab Coenzyme Q10 (Coenzyme Q10) 100 mg PO DAILY [facility] Last Admin: 04/07/18 08:56 Dose: 100 mg Enoxaparin Sodium (Lovenox) 30 mg SC 09 [facility] Last Admin: 04/07/18 08:56 Dose: 30 mg Famotidine (Pepcid) 20 mg SLOW IVP QPM [facility] Last Admin: 04/06/18 21:36 Dose: 20 mg Finasteride (Proscar) 5 mg PO [facility] Last Admin: 04/06/18 22:05 Dose: 5 mg Guaifenesin/Dextromethorphan (Robitussin Dm) 15 ml PO Q4H PRN PRN Reason: Cough Ceftriaxone Sodium 2 gm/ (Sodium Chloride) 100 mls @ 200 mls/hr IVPB Q24HR [facility] Last Admin: 04/07/18 10:59 Dose: 100 mls Lactulose (Lactulose) 20 gm PO DAILYPRN PRN PRN Reason: Constipation Metoprolol Tartrate (Lopressor) 25 mg PO DAILY [facility] Last Admin: 04/07/18 08:56 Dose: 25 mg Ondansetron HCl (Zofran Odt) 4 mg PO Q6H PRN PRN Reason: Nausea/Vomiting Ondansetron HCl (Zofran) 4 mg IVP Q6H PRN PRN Reason: Nausea/Vomiting Polyethylene Glycol (Miralax) 17 gm PO PRN PRN PRN Reason: Constipation Ranolazine (Ranexa) 500 mg PO BID [facility] Last Admin: 04/07/18 08:56 Dose: 500 mg Rasagiline (Azilect) 1 mg PO DAILY [facility] Last Admin: 04/07/18 08:56 Dose: 1 mg Sodium Biphosphate/Sodium Phosphate (Fleet Enema) 133 ml [place] ONE PRN PRN Reason: Constipation Stop: 05/05/18 20:28 Sodium Chloride (Flush - Normal Saline) 10 ml IVF Q12HR [facility] Last Admin: 04/07/18 08:56 Dose: 10 ml Sodium Chloride (Flush - Normal Saline) 10 ml IVF PRN PRN PRN Reason: Saline Flush Venlafaxine HCl (Effexor Xr) 75 mg PO DAILY [facility] Last Admin: 04/07/18 08:56 Dose: 75 mg
--- NOTE | 2018-04-07 14:08 | PQF ---
DATE: 04-07-18 ATTN: DR. ANAIS BENOIT Please exercise your independent, professional judgment in responding to the clarification form. Clinical indicators are provided on the bottom of this form for your review Please check appropriate box(es): [ x] Sepsis due to: (UTI, etc.) [ ] Localized infection without sepsis [ ] Other diagnosis [ ] Unable to determine In addition, please specify: Present on Admission (POA): [ x] Yes [ ] No [ ] Unable to determine For continuity of documentation, please document condition throughout progress notes and discharge summary. Thank You. CLINICAL INDICATORS - SIGNS / SYMPTOMS / LABS ER DX: UTI, FEVER, LEUKOCYTOSIS PULSE ER: 110 ER RR: 22, 20 ER TEMP: 99.8 ER DX: WBC: 04-05-18: 18.6, 04-06-18: 27.3 04-07-18: 18.0 BANDS: 04-06-18: 22 RISK FACTORS: ER DX: UTI, FEVER, LEUKOCYTOSIS ADVANCED AGE TREATMENTS: ER ZOSYN, NS IVF, ROCEPHIN IV, VANCOMYCIN IV (This form is maintained as a part of the permanent medical record) 2014 [employer]. All Rights Reserved [email or web address] Office: [phone] KERRIE
[2018-04-07] MEDS: Atorvastatin Calcium 20 MG TAB PO SCH (21:18)
[2018-04-07] MEDS: Finasteride 5 MG TAB PO SCH (21:19)
[2018-04-07] MEDS: Famotidine/PF 20 mg/2ml Vial SLOW IVP SCH (21:19)
[2018-04-08] MEDS: Carbidopa/Levodopa 25-100 mg Tablet PO SCH ×2 (08:41→13:30)
[2018-04-08] MEDS: Venlafaxine HCl XR 75 MG CAP PO SCH (08:41)
[2018-04-08] MEDS: Ubidecarenone 50 MG CAP PO SCH (08:42)
[2018-04-08] MEDS: Metoprolol Tartrate 25 MG TAB PO SCH (08:42)
[2018-04-08] MEDS: Enoxaparin Sodium 30 MG/0.3 ML SYRINGE SC SCH (08:43)
[2018-04-08 09:45] LABS: Hemoglobin 13.3 g/dL (14.0-18.0); Mean Corpuscular HGB CONC 33.9 g/dL (32.0-36.0); Mean Corpuscular Hemoglobin 31.9 pg (27.0-31.0); Mean Platelet Volume 7.1 fL (7.4-10.4); Platelet Count 296 thou/uL (130-400); RBC Distribution Width 11.8 % (11.5-14.5); Red Blood Cell (RBC) Count 4.17 mill/uL (4.70-6.10); White Blood Cell (WBC) Count 12.2 thou/uL (4.8-10.8)
[2018-04-08 09:59] LABS: Anion Gap 15 mmol/L (10-20); BUN (Urea Nitrogen) 11 mg/dL (8.4-25.7); Calc. Creatinine Clearance 83 mL/min (70-130); Calcium 9.1 mg/dL (7.8-10.44); Carbon Dioxide 26 mmol/L (23-31); Chloride 97 mmol/L (98-107); Estimated GFR-MDRD 84; Glucose 98 mg/dL (83-110); Potassium 3.7 mmol/L (3.5-5.1); Sodium 134 mmol/L (136-145)
[2018-04-08 10:28] LABS: Band 14 % (5-11); Lymphocytes 13 % (21-51); MDiff Complete? YES; Monocytes 10 % (0-10); Neutrophil 63 % (42-75); RBC Morphology Normal
[2018-04-08] MEDS: cefTRIAXone\\ROCEPHIN 2 GM in Sodium Chloride 0.9% 100 ML IVPB SCH (11:32)
[2018-04-08 13:55] VITALS: BP 143/87; TEMP 98.2
--- NOTE | 2018-04-08 19:40 | DIS ---
DATE OF ADMISSION: 04/06/2018 DATE OF DISCHARGE: 04/08/2018 DISCHARGE DIAGNOSES: 1. Sepsis. 2. Urinary tract infection. 3. Leukocytosis. HOSPITAL COURSE: The patient is a very pleasant 78-year-old male who initially presented to the hosp ital with generalized body aches and pains and also felt weak and dizzy. Patient at that time had [facility] lab work done which indicated significant leukocytosis and also had a UTI which was positive for ni trites. Patient at that time was started on IV antibiotics. Patient's culture indicated E. coli whi ch was pansensitive. He did also have a blood culture one bottle that was positive for coagulase neg ative Staph, which was supposed to be most likely contaminant. The patient will be discharged home o n cefdinir 300 mg twice a day for a total of 7 days. He had 3 doses while he was in the hospital. W e did do a post-residual bladder scan and he had only 100 mL. Patient was asked to follow up with [facility] urologist and also his primary care doctor. Patient while in the hospital did have some mild hemat uria; however, this resolved without any significant intervention. He was on Lovenox which was disco ntinued. The patient's hemoglobin and hematocrit continued to remain stable and he will be discharge d home. Follow up with primary care doctor and also his urologist. The patient was asked to come in if symptoms worsen. PHYSICAL EXAMINATION: VITAL SIGNS: 97.7, 71, 18, 92% room air, 131/44. GENERAL: He is awake, alert, and oriented x3. CARDIOVASCULAR: S1, S2 present. No murmurs, rubs or gallops. ABDOMEN: Soft, nontender. Bowel sounds are present. EXTREMITIES: No edema. Pedal pulses are present x2. The patient requested to have physical therapy as an outpatient. [facility] DISCHARGE MEDICATIONS: The patient will continue on his home medications. He will have the new pres cription. I have prescribed to him cefdinir. The patient does take Proscar 5 mg at bedtime, aspirin 325 q.p.m., also, carbidopa/levodopa 1 q.i.d., metoprolol 25 daily, Ranexa 500 mg p.o. b.i.d., Malini ax 17 grams p.o. p.r.n.
[2018-04-08] MEDS ORDERED: Famotidine 20 MG TAB PO SCH (21:00)
== END 2018-04-08 14:06 | disposition home or self-care (01) | DRG 872 ==
LOC: SCSER 16:18 → T4-A 18:42
PROVIDERS: ADMIT Internal Medicine; ATTEND Internal Medicine
DX: A41.9 Sepsis, unspecified organism (principal); N39.0 Urinary tract infection, site not specified; N17.9 Acute kidney failure, unspecified; G20 Parkinson's disease; I25.10 Atherosclerotic heart disease of native coronary artery without angina pectoris; E78.5 Hyperlipidemia, unspecified; F41.9 Anxiety disorder, unspecified; I12.9 Hypertensive chronic kidney disease with stage 1 through stage 4 chronic kidney disease, or unspecified chronic kidney disease; N18.3 Chronic kidney disease, stage 3 (moderate); D72.829 Elevated white blood cell count, unspecified; B96.20 Unspecified Escherichia coli [E. coli] as the cause of diseases classified elsewhere; N40.1 Benign prostatic hyperplasia with lower urinary tract symptoms; R33.8 Other retention of urine; Z88.2 Allergy status to sulfonamides; Z79.82 Long term (current) use of aspirin; Z95.5 Presence of coronary angioplasty implant and graft
CPT/HCPCS: 36415; 71045; 80048; 80053; 80069; 81003; 81015; 82550; 82553; 83605; 83690; 84484; 85025; 87040; 87077; 87086; 87149; 87186; 93005; 96361; 96365; A4216; J0696; J1650; J2543; J3370; J7050; S0028

== ENCOUNTER 2018-12-04 13:34 | Outpatient (CLI) | payer MEDICARE, BC ==
--- NOTE | 2018-12-04 15:07 | ULT ---
TESTICULAR ULTRASOUND: INDICATIONS: Testicular pain. FINDINGS: Both testicles show mild heterogeneity; however, the left testicle shows more heterogeneity than the right. Color Doppler with spectral analysis demonstrates equal and normal appearing blood flow to leatha th testicles. There is no significant hydrocele. Tiny epididymal cyst at the head of the left epidi dymis is seen, measuring in the 2 to 4 mm range. IMPRESSION: Bilateral testicular heterogeneity, more prominent on the left. Significance is uncertain. Suggest follow-up testicular ultrasound in two to three months, to confirm stability of the testicular appear ance. POS: KUSHAL
== END 2018-12-04 13:35 | disposition home or self-care (01) ==
LOC: SCSULT 13:34
PROVIDERS: ATTEND Urology
DX: N50.89 Other specified disorders of the male genital organs (principal)
CPT/HCPCS: 76870; 93976

== ENCOUNTER 2019-01-01 14:50 | Emergency (ER) | payer MEDICARE, BC ==
[2019-01-01 15:32] LABS: Anion Gap 13 mmol/L (10-20); BUN (Urea Nitrogen) 23 mg/dL (8.4-25.7); Calc. Creatinine Clearance 0 mL/min (70-130); Carbon Dioxide 25 mmol/L (23-31); Chloride 99 mmol/L (98-107); Estimated GFR-MDRD 52; Glucose 100 mg/dL (83-110); Sodium 133 mmol/L (136-145)
[2019-01-01 16:00] LABS: Bilirubin Negative (Negative); Blood, Urine Trace (Negative); Clarity Clear (Clear); Glucose, Urine (Dipstick) Negative (Negative); Leukocyte Negative (Negative); Nitrite Negative (Negative); Protein, Urine (Dipstick) Negative (Neg-Trace); Specific Gravity, Urine 1.015 (1.005-1.030); pH, Urine 6.5 (5.0-9.0)
[2019-01-01 16:06] LABS: Bacteria/HPF None Seen HPF (None Seen); Squamous Epithelial 0-3 HPF (0-3); WBC/HPF 0-3 HPF (0-3)
== END 2019-01-01 16:34 | disposition home or self-care (01) ==
LOC: SCSER 14:50
DX: R30.0 Dysuria (principal); R39.11 Hesitancy of micturition; G20 Parkinson's disease; I25.10 Atherosclerotic heart disease of native coronary artery without angina pectoris; E78.5 Hyperlipidemia, unspecified; I10 Essential (primary) hypertension; F41.9 Anxiety disorder, unspecified; Z79.899 Other long term (current) drug therapy; Z79.82 Long term (current) use of aspirin
CPT/HCPCS: 51702; 80048; 81003; 81015

== ENCOUNTER 2020-09-06 11:22 | Inpatient (IN) | payer MEDICARE, BC ==
[2020-09-06 13:39] VITALS: BMI 25.2
--- NOTE | 2020-09-06 14:29 | CON ---
DATE OF CONSULTATION: 09/06/2020 HISTORY OF PRESENT ILLNESS: The patient is an 80-year-old male with a past medical history of Parkinson disease, coronary artery disease with prior cardiac stenting, on 325 mg of aspirin daily, who presented to the emergency department at [facility] today after several falls. The patient has some baseline instability due to his Parkinson disease. His reports she heard him call out around 7 this morning and she found him down. He was brought to the emergency department, where he was evaluated with a noncontrast head CT and a noncontrast CT of the cervical spine. CT of head was notable for a small area of traumatic subarachnoid hemorrhage along the left sylvian fissure, left temporal region. A CT of the cervical spine was notable for a linear fracture at C6 along the anterior aspect that extends to the inferior endplate of the anterior and middle columns. Does not appear to affect the posterior column. The patient was placed in an [place] collar at the department. Neurosurgery was consulted for these injuries. I visited the patient at the bedside. He is awake, alert, and oriented x4. He has a resting tremor, but is otherwise grossly nonfocal on his neurologic exam. There is a small abrasion to the right forehead. PAST MEDICAL HISTORY: Parkinson disease, coronary artery disease with prior cardiac stenting, hypertension, and hyperlipidemia. PAST SURGICAL HISTORY: TURP, L2 through S1 decompression by Dr. Randall, cardiac stenting, appendectomy, hernia repair. SOCIAL HISTORY: The patient drinks socially. He does not use any drugs. He does not smoke. He lives at home with his . ALLERGIES: HE HAS NO KNOWN DRUG ALLERGIES. CURRENT MEDICATIONS: 1. Atorvastatin 10 mg daily. 2. Carbidopa/levodopa 25/100 mg 1 tablet p.o. t.i.d. 3. Aspirin 325 mg daily. 4. Azilect 1 mg daily. 5. Toprol-XL 25 mg 2 daily. 6. Ranexa 500 mg daily. 7. Pristiq 50 mg daily. PHYSICAL EXAMINATION: VITAL SIGNS: Stable, afebrile. CONSTITUTIONAL: Awake and alert, in no acute distress. HEAD: There is a small area of contusion and abrasion to the right forehead. EYES: PERRLA. Extraocular movements intact. ENT: [place], intact, moist. He has normal voice. NECK: He is currently being immobilized in an [place] collar. I did not remove the collar or attempt range of motion or palpation due to underlying injury. CARDIAC: Regular rate and rhythm. PULMONARY: Symmetric chest expansion. No evidence of dyspnea. MUSCULOSKELETAL: No obvious deformities. He has some notable cogwheel rigidity and resting tremor. NEUROLOGIC: A and O x4. He has resting tremor and exam consistent with parkinsonian syndrome, however, he is grossly nonfocal. ASSESSMENT AND PLAN: The patient had a mechanical fall at home and has a small area of traumatic subarachnoid hemorrhage on the left sylvian fissure and left temporal region. We will plan to watch him with q.2 neuro-checks for the first 8 hours and then transition to q.4 after that. We should hold his 325 mg aspirin, and I will repeat a noncontrast head CT in the morning. With regard to his cervical injury, we will plan to treat this conservatively and collar at all times. He is currently wearing an [place] collar, which he should continue to wear at all times. We will provide him with a [place] collar for showering. I anticipate cervical immobilization for at least 8 weeks. We will follow along with his progress, and the patient will be admitted to the Trauma Service. Job ID: [id number] MTDD
[2020-09-06] MEDS ORDERED: Dextrose 50% Abboject 50 ML SYRINGE SLOW IVP PRN (14:41)
[2020-09-06] MEDS ORDERED: Dextrose 5% in Water 1,000 ML IV PRN (14:41)
[2020-09-06] MEDS ORDERED: Ondansetron PF 4 MG/2 ML Vial IVP PRN (14:41)
[2020-09-06] MEDS ORDERED: Carbidopa/Levodopa 25-100 mg Tablet PO SCH (15:00)
[2020-09-06 15:38] LABS: INR-International Normal Ratio 1.1; Prothrombin Time 14.1 sec (12.0-14.7)
[2020-09-06 15:39] LABS: PTT 23.8 sec (22.9-36.1)
--- NOTE | 2020-09-06 17:08 | HP ---
CONSULTATION: Dr. Garcia, Neurosurgery. HISTORY OF PRESENT ILLNESS: Mr. Gomes is an 80-year-old man with a past medical history of Parkinson disease, hypertension, hyperlipidemia, prior cardiac stent placement for coronary artery disease. The patient is on aspirin 325 mg daily. The patient presented to [facility] after a fall in his kitchen. The patient states after he fell, he does not remember if he lost consciousness, he said his had to come across the house to help him up. Over the last year, the patient has fallen 3 times, the patient reports he has some instability with his Parkinson disease. The patient's says she is not able to handle him all the time at home due to his instability. She would like him to have some rehab before going back to the house. CT scan of the head shows subarachnoid hemorrhage, Cervical spine shows a linear fracture at C6. At bedside today, the patient was in an [place] collar. PAST MEDICAL HISTORY: Parkinson disease, coronary artery disease, prior cardiac stent, hypertension, hyperlipidemia. SURGICAL HISTORY: TURP, L2 through S1 decompression by Dr. Randall, cardiac stenting, appendectomy, hernia repair. PAST SURGICAL HISTORY: The patient drinks socially. Does not do any illicit drugs. Lives at home with his . ALLERGIES: NO KNOWN ALLERGIES. CURRENT MEDICATIONS: 1. Aspirin 325 once daily. 2. Carbidopa/levodopa 25/100 four times daily. 3. Finasteride 5 mg. 4. Ranolazine 500 mg b.i.d. 5. Rasagiline mesylate. PHYSICAL EXAMINATION: VITALS: Temperature 97.9, pulse 91, respiratory rate 16, oxygen saturation 96, and blood pressure 148/87. GENERAL: Sitting upright in bed, resting tremor. HEENT: Head, normocephalic and atraumatic. Right eye, periorbital ecchymosis, PERRLA. Extraocular movements intact. ENT, cervical collar in place. CARDIAC: Regular rate and rhythm. PULMONARY: No respiratory distress. Speaking full sentences. EXTREMITIES: Full range of motion in upper and lower extremities. +5 strength in upper and lower extremities, sensation intact. Resting tremor. NEUROLOGIC: A and O x4. GCS 15. resting tremor, finger to nose slow, intact. IMAGING: CT scan shows small subarachnoid hemorrhage and linear fracture of C6. ASSESSMENT: 1. Mechanical fall. 2. Subarachnoid hemorrhage. 3. C6 linear fracture. 4. Parkinson's. PLAN: 1.If GCS drop 2 points notify provider. 2. Repeat CT scan in the morning. 3. Spinal precautions, q.2 neuro checks for the first 8 hour. 4. PT/OT evaluation for Case Management, plan for acute rehab. 5. Resume home medications, SCD, IS Hold ASA. 6 Appreciate neurosurgery consult Case discussed with Dr. Umaña. Job ID: [id number] [facility]
[2020-09-06] MEDS: Acetaminophen 325 MG TAB PO SCH (18:17)
[2020-09-06] MEDS: Famotidine 20 MG TAB PO SCH (20:56)
[2020-09-06] MEDS: Atorvastatin Calcium 20 MG TAB PO SCH (20:57)
[2020-09-06] MEDS: Carbidopa/Levodopa 25-100 mg Tablet PO SCH (20:57)
[2020-09-07] MEDS: Acetaminophen 325 MG TAB PO SCH ×5 (00:50→23:31)
[2020-09-07 05:17] LABS: #Lymphocytes 1.1 thou/uL (1.20-3.40); #Neutrophils 7.5 thou/uL (1.40-6.50); %Basophils 0.1 % (0.0-1.0); %Eosinophils 0.5 % (0.0-10.0); %Lymphocytes 11.3 % (21.0-51.0); %Monocytes 10.7 % (0.0-10.0); %Neutrophils 77.5 % (42.0-75.0); Hemoglobin 13.6 g/dL (14.0-18.0); Mean Corpuscular HGB CONC 34.4 g/dL (32.0-36.0); Mean Corpuscular Hemoglobin 31.7 pg (27.0-31.0); Mean Corpuscular Volume 92.3 fL (78.0-98.0); Mean Platelet Volume 7.6 fL (7.4-10.4); Platelet Count 277 thou/uL (130-400); RBC Distribution Width 11.7 % (11.5-14.5); Red Blood Cell (RBC) Count 4.28 mill/uL (4.70-6.10); White Blood Cell (WBC) Count 9.7 thou/uL (4.8-10.8)
[2020-09-07] MEDS: hydrALAZINE 20 MG/ML VIAL SLOW IVP PRN (05:19)
[2020-09-07 05:38] LABS: Anion Gap 11 mmol/L (10-20); BUN (Urea Nitrogen) 19 mg/dL (8.4-25.7); Calc. Creatinine Clearance 77 mL/min (70-130); Calcium 8.3 mg/dL (7.8-10.44); Carbon Dioxide 26 mmol/L (23-31); Chloride 98 mmol/L (98-107); Glucose 108 mg/dL (83-110); Phosphorus 2.9 mg/dL (2.3-4.7); Potassium 3.4 mmol/L (3.5-5.1); Sodium 132 mmol/L (136-145)
[2020-09-07 08:31] LABS: SARS-CoV-2 PCR by NAA Not Detected (NotDetected)
--- NOTE | 2020-09-07 08:39 | CT ---
Exam: Head CT without contrast HISTORY: Reevaluate subarachnoid hemorrhage. COMPARISON: 09/06/2020 FINDINGS: Hemorrhage: Stable linear density along the left sylvian fissure suggesting subarachnoid blood. There does appear to be focal prominence of the left carotid terminus. Additionally, mild ectasia of the basilar artery. CT angiogram of the head is recommended for better evaluation. Brain parenchyma: Cortical barrios-white matter differentiation is preserved. No mass effect or midline shift. Basilar cisterns are patent.Able chronic small vessel ischemic changes of white matter Ventricular system: Ventricles and sulci are patent and symmetric. Calvarium: Intact. Sinuses and mastoid air cells: Adequate aeration. IMPRESSION: 1. Stable subarachnoid hemorrhage 2. Follow-up prominence at the left carotid terminus. Ectasia of the basilar artery. CT angiogram of the [place] is recommended for better interrogation.
[2020-09-07] MEDS: Carbidopa/Levodopa 25-100 mg Tablet PO SCH ×4 (09:18→19:53)
[2020-09-07] MEDS: Finasteride 5 MG TAB PO SCH (09:19)
[2020-09-07] MEDS: Famotidine 20 MG TAB PO SCH ×2 (09:20→19:53)
[2020-09-07] MEDS ORDERED: Amlodipine 5 MG TAB PO SCH (09:45)
--- NOTE | 2020-09-07 10:13 | PRG ---
DATE OF SERVICE: 09/07/2020 The patient is seen and examined. I agree with Margarita Johns's evaluation on 09/06/2020. SUBJECTIVE: The patient is an 80-year-old male with parkinsonism who had a mechanical fall. He is neurologically intact and interactive. He is in a cervical collar. CT of the head reveals a small left sulcal traumatic subarachnoid hemorrhage. Followup CT was not available for review at this time. The patient has a C6 anterior inferior vertebral body fracture largely through an osteophyte. IMPRESSION AND PLAN: With regard to the head injury, we will get a followup CT scan. If this is stable, he can safely be mobilized. We would recommend holding aspirin. We will arrange a followup head CT in 4 weeks. Regarding the C6 fracture, he need to be in the cervical collar and can be safely mobilized from this perspective. We will re-evaluate in 4 weeks with x-rays. Job ID: [id number]
--- NOTE | 2020-09-07 14:00 | PRG ---
DATE OF SERVICE: 09/07/2020 SUBJECTIVE: Mr. Gomes is status post supposedly a mechanical fall. He sustained a linear fracture at the C6 level. He has no complaints this morning. OBJECTIVE: VITAL SIGNS: Blood pressure 177/92, pulse 87, and O2 saturations 96% on room air, temperature of 98.0. GENERAL: No acute distress. Sleeping comfortably. HEART: No murmurs, rubs, or gallops. Regular rate and rhythm. LUNGS: Clear to auscultation bilaterally. ABDOMEN: Soft, nontender, nondistended. Bowel sounds present. LABORATORY DATA: Labs were reviewed this morning. RADIOGRAPHS: No radiographs were reviewed this morning. ASSESSMENT: 1. Status post mechanical fall. 2. C6 linear fracture. 3. Subarachnoid hemorrhage. 4. Parkinson disease. 5. Hypertension. 6. Hyperlipidemia. 7. Coronary artery disease, status post stent placement. PLAN: The patient on spinal precautions, currently in an [place] neck brace, using [place] neck brace for showering, resuming home medications, holding blood thinners. PT, OT and Case Management on board for acute rehab. Neurosurgery following and on board, maintaining blood pressures below 150, added amlodipine to the patient's medication regimen. The patient to be transferred to surgical floor today. Job ID: [id number]
[2020-09-07] MEDS: Atorvastatin Calcium 20 MG TAB PO SCH (19:53)
[2020-09-08] MEDS: hydrALAZINE 20 MG/ML VIAL SLOW IVP PRN (04:28)
[2020-09-08 05:25] LABS: #Eosinphils 0.1 thou/uL (0.0-0.7); #Lymphocytes 1.2 thou/uL (1.20-3.40); #Monocytes 1.1 thou/uL (0.11-0.59); #Neutrophils 5.3 thou/uL (1.40-6.50); %Basophils 0.4 % (0.0-1.0); %Eosinophils 1.1 % (0.0-10.0); %Lymphocytes 15.5 % (21.0-51.0); %Monocytes 13.8 % (0.0-10.0); %Neutrophils 69.1 % (42.0-75.0); Hemoglobin 13.4 g/dL (14.0-18.0); Mean Corpuscular HGB CONC 34.2 g/dL (32.0-36.0); Mean Corpuscular Hemoglobin 31.6 pg (27.0-31.0); Mean Corpuscular Volume 92.2 fL (78.0-98.0); Mean Platelet Volume 7.8 fL (7.4-10.4); Platelet Count 284 thou/uL (130-400); RBC Distribution Width 11.9 % (11.5-14.5); Red Blood Cell (RBC) Count 4.25 mill/uL (4.70-6.10); White Blood Cell (WBC) Count 7.6 thou/uL (4.8-10.8)
[2020-09-08 05:35] LABS: Anion Gap 13 mmol/L (10-20); BUN (Urea Nitrogen) 16 mg/dL (8.4-25.7); Calc. Creatinine Clearance 66 mL/min (70-130); Calcium 8.6 mg/dL (7.8-10.44); Carbon Dioxide 25 mmol/L (23-31); Chloride 101 mmol/L (98-107); Glucose 99 mg/dL (83-110); Magnesium 2.1 mg/dL (1.6-2.6); Phosphorus 3.6 mg/dL (2.3-4.7); Potassium 3.6 mmol/L (3.5-5.1); Sodium 135 mmol/L (136-145)
[2020-09-08] MEDS: Acetaminophen 325 MG TAB PO SCH ×2 (05:38→13:03)
[2020-09-08] MEDS ORDERED: Amlodipine 5 MG TAB PO SCH (09:00)
[2020-09-08] MEDS: Finasteride 5 MG TAB PO SCH (09:16)
[2020-09-08] MEDS: Carbidopa/Levodopa 25-100 mg Tablet PO SCH ×3 (09:17→17:08)
[2020-09-08] MEDS: Famotidine 20 MG TAB PO SCH (09:17)
[2020-09-08 11:59] VITALS: BP 131/77; TEMP 97.9
--- NOTE | 2020-09-08 15:05 | DIS ---
DATE OF ADMISSION: 09/06/2020 DATE OF DISCHARGE: 09/08/2020 ADMISSION DIAGNOSES: Mechanical fall from standing, subarachnoid hemorrhage, and C6 vertebral body fracture. DISCHARGE DIAGNOSES: Mechanical fall from standing, subarachnoid hemorrhage, and C6 vertebral body fracture. CONSULTING PHYSICIAN: Dr. Garcia of Neurosurgery. PROCEDURES: None. HOSPITAL COURSE: The patient is an 80-year-old male, presented to the emergency department after a mechanical fall at home, where patient reports he lost his balance. He was found to have a subarachnoid hemorrhage and a C6 vertebral body fracture. He was neurologically intact without any deficits. He was evaluated by Dr. Garcia, who ultimately reported his TBI was stable and he has to have an [place] collar at all times with a [place] collar for showering. The patient was evaluated by Physical Therapy, who recommended placement in acute rehab facility. At the time of discharge, the patient's pain was well controlled. He was tolerating regular diet, ambulating with a walker and moving without difficulties and was restarted on his home medications. He was found to be hypertensive during his stay and was started on amlodipine, with hold parameters. DISCHARGE DISPOSITION: Acute rehab facility. DISCHARGE CONDITION: Satisfactory. ACTIVITY: As tolerated. He is to have [place] collar on at all time and a [place] collar for shower. He will have a regular diet. He received physical and occupational therapy as well as speech language pathology. He will have a cervical collar, [place] collar, incentive spirometer, and a walker. DISCHARGE MEDICATIONS: Include, 1. Tylenol. 2. Amlodipine. 3. Pepcid. 4. Atorvastatin. 5. Carbidopa/levodopa. 6. Pristiq. 7. Proscar. 8. Ranexa. 9. Azilect. FOLLOWUP APPOINTMENTS: The patient is to follow up with Dr. Garcia in clinic. No followup is needed with Dr. Umaña. This is a summary of the patient's hospitalization. For full details, please see his medical record in its entirety. This patient was discussed with Dr. Umaña on the day of discharge and evaluated by myself. Job ID: [id number]
== END 2020-09-08 17:15 | DRG 551 ==
LOC: 2SE 12:36 → SURG B 09-07 12:24
PROVIDERS: ADMIT Surgery; ATTEND Surgery
DX: S12.590A Other displaced fracture of sixth cervical vertebra, initial encounter for closed fracture (principal); S06.6X9A Traumatic subarachnoid hemorrhage with loss of consciousness of unspecified duration, initial encounter; G20 Parkinson's disease; Z20.822 Contact with and (suspected) exposure to COVID-19; I25.10 Atherosclerotic heart disease of native coronary artery without angina pectoris; I10 Essential (primary) hypertension; E78.5 Hyperlipidemia, unspecified; Z90.49 Acquired absence of other specified parts of digestive tract; Z79.82 Long term (current) use of aspirin; Z79.899 Other long term (current) drug therapy; E78.00 Pure hypercholesterolemia, unspecified; W01.10XA Fall on same level from slipping, tripping and stumbling with subsequent striking against unspecified object, initial encounter
CPT/HCPCS: 36415; 70450; 72125; 80048; 80053; 83735; 84100; 85025; 85610; 85730; 87635; 93005; J0360; U0003; U0005

== ENCOUNTER 2021-07-22 21:14 | Inpatient (IN) | payer MEDICARE, BC ==
[2021-07-22 22:57] VITALS: BMI 24.9
[2021-07-22] MEDS ORDERED: Promethazine HCl 25 MG/ML VIAL IM PRN (23:16)
[2021-07-22] MEDS ORDERED: Dextrose 50% Abboject 50 ML SYRINGE SLOW IVP PRN (23:16)
[2021-07-22] MEDS ORDERED: Dextrose 5% in Water 1,000 ML IV PRN (23:16)
[2021-07-22] MEDS ORDERED: Ondansetron ODT 4 MG TAB PO PRN (23:16)
[2021-07-22] MEDS ORDERED: Sodium Chloride 0.9% 1,000 ML IV SCH ×2 (23:30)
[2021-07-22] MEDS ORDERED: Albuterol Sulfate 1.25 MG/3 ML NEB NEB PRN (23:33)
[2021-07-22] MEDS: Acetaminophen 500 MG TAB PO SCH (23:45)
[2021-07-23 03:21] LABS: #Basophils 0.1 thou/uL (0.0-0.2); #Eosinphils 0.1 thou/uL (0.0-0.7); #Lymphocytes 1.1 thou/uL (1.20-3.40); #Monocytes 1.3 thou/uL (0.11-0.59); #Neutrophils 7.4 thou/uL (1.40-6.50); %Basophils 0.8 % (0.0-1.0); %Eosinophils 0.7 % (0.0-10.0); %Lymphocytes 11.4 % (21.0-51.0); %Monocytes 12.8 % (0.0-10.0); %Neutrophils 74.3 % (42.0-75.0); Hemoglobin 12.3 g/dL (14.0-18.0); Mean Corpuscular Hemoglobin 32.4 pg (27.0-31.0); Mean Corpuscular Volume 92.6 fL (78.0-98.0); Mean Platelet Volume 6.9 fL (7.4-10.4); Platelet Count 311 thou/uL (130-400); RBC Distribution Width 11.9 % (11.5-14.5); Red Blood Cell (RBC) Count 3.79 mill/uL (4.70-6.10); White Blood Cell (WBC) Count 9.9 thou/uL (4.8-10.8)
[2021-07-23 03:42] LABS: Phosphorus 2.5 mg/dL (2.3-4.7)
[2021-07-23 03:43] LABS: Anion Gap 11 mmol/L (10-20); BUN (Urea Nitrogen) 21 mg/dL (8.4-25.7); Calc. Creatinine Clearance 70 mL/min (70-130); Calcium 8.7 mg/dL (7.8-10.44); Carbon Dioxide 25 mmol/L (23-31); Chloride 98 mmol/L (98-107); Glucose 108 mg/dL (83-110); Magnesium 1.8 mg/dL (1.6-2.6); Potassium 3.2 mmol/L (3.5-5.1); Sodium 131 mmol/L (136-145)
[2021-07-23] MEDS: hydrALAZINE 20 MG/ML VIAL SLOW IVP PRN (04:07)
[2021-07-23] MEDS: Acetaminophen 500 MG TAB PO SCH ×3 (05:39→17:56)
[2021-07-23] MEDS ORDERED: Potassium Phosphate 30 MMOL in Sodium Chloride 0.9% 250 ML 250 ML IVPB SCH (07:30)
[2021-07-23] MEDS ORDERED: Potassium Phosphate 30 MMOL in Sodium Chloride 0.9% 500 ML IVPB SCH (08:00)
[2021-07-23] MEDS: Carbidopa/Levodopa 25-100 mg Tablet PO SCH ×4 (09:37→22:25)
[2021-07-23] MEDS: Famotidine 20 MG TAB PO SCH ×2 (09:37→22:24)
[2021-07-23 12:42] LABS: SARS-CoV-2 PCR by NAA Not Detected (NotDetected)
[2021-07-23] MEDS: Atorvastatin Calcium 20 MG TAB PO SCH (22:24)
[2021-07-23] MEDS: Venlafaxine HCl XR 75 MG CAP PO SCH (22:25)
[2021-07-23] MEDS: Finasteride 5 MG TAB PO SCH (22:25)
[2021-07-24] MEDS: Acetaminophen 500 MG TAB PO SCH ×4 (00:13→17:18)
[2021-07-24] MEDS: hydrALAZINE 20 MG/ML VIAL SLOW IVP PRN (00:33)
[2021-07-24] MEDS ORDERED: Haloperidol Lactate 5 MG/ML VIAL ONE (00:42)
[2021-07-24] MEDS ORDERED: Haloperidol Lactate 5 MG/ML VIAL SLOW IVP SCH (01:15)
[2021-07-24] MEDS: Carbidopa/Levodopa 25-100 mg Tablet PO SCH ×4 (08:15→19:27)
[2021-07-24] MEDS: Famotidine 20 MG TAB PO SCH ×2 (08:15→19:26)
[2021-07-24] MEDS: Venlafaxine HCl XR 75 MG CAP PO SCH (19:26)
[2021-07-24] MEDS: Atorvastatin Calcium 20 MG TAB PO SCH (19:26)
[2021-07-24] MEDS: Finasteride 5 MG TAB PO SCH (19:27)
[2021-07-25] MEDS: Acetaminophen 500 MG TAB PO SCH ×4 (00:20→18:05)
[2021-07-25 08:12] LABS: Anion Gap 9 mmol/L (10-20); BUN (Urea Nitrogen) 27 mg/dL (8.4-25.7); Calc. Creatinine Clearance 71 mL/min (70-130); Calcium 8.9 mg/dL (7.8-10.44); Carbon Dioxide 28 mmol/L (23-31); Chloride 99 mmol/L (98-107); Glucose 99 mg/dL (83-110); Potassium 3.2 mmol/L (3.5-5.1); Sodium 133 mmol/L (136-145)
[2021-07-25] MEDS: Carbidopa/Levodopa 25-100 mg Tablet PO SCH ×3 (10:29→18:05)
[2021-07-25] MEDS: Sodium Bicarbonate Tab 325 MG TAB PO SCH ×2 (10:30→13:54)
[2021-07-25] MEDS: Famotidine 20 MG TAB PO SCH (10:30)
[2021-07-25] MEDS ORDERED: Potassium Chloride 20 MEQ TAB PO SCH (11:00)
[2021-07-25 16:08] VITALS: BP 135/71; TEMP 98.7
== END 2021-07-25 18:55 | DRG 86 ==
LOC: IMCU/EMU 21:14 → INTOOBSV 21:14 → SURG A 07-23 11:09 → OBSVTOIN 07-24 16:37
PROVIDERS: ADMIT Specialist; ATTEND Surgery
DX: S06.5X0A Traumatic subdural hemorrhage without loss of consciousness, initial encounter (principal); I50.32 Chronic diastolic (congestive) heart failure; W19.XXXA Unspecified fall, initial encounter; Z20.822 Contact with and (suspected) exposure to COVID-19; S00.212A Abrasion of left eyelid and periocular area, initial encounter; G20 Parkinson's disease; I25.10 Atherosclerotic heart disease of native coronary artery without angina pectoris; E78.5 Hyperlipidemia, unspecified; I11.0 Hypertensive heart disease with heart failure; Z79.82 Long term (current) use of aspirin; Z79.899 Other long term (current) drug therapy; Z90.49 Acquired absence of other specified parts of digestive tract; Z98.890 Other specified postprocedural states
CPT/HCPCS: 36415; 70450; 80048; 83735; 84100; 85025; 93306; 93880; 96374; 96375; 96376; G0378; J0360; J1630; J7050; U0003; U0005